=== PATIENT | male | born 1940 | race Caucasian/White ===

== ENCOUNTER → 2018-01-30 | Outpatient (CLI) | payer MEDICARE, OTHER | LOC: M.LAB 04:28 | DX: Z01.812 Encounter for preprocedural laboratory examination (principal) ==

== ENCOUNTER → 2019-03-16 | Outpatient (CLI) | payer MEDICARE, OTHER | LOC: M.MRI 15:53 | DX: R90.82 White matter disease, unspecified (principal); I66.9 Occlusion and stenosis of unspecified cerebral artery; H74.8X1 Other specified disorders of right middle ear and mastoid ==

== ENCOUNTER → 2019-04-20 | Outpatient (CLI) | payer MEDICARE, OTHER ==
--- NOTE | 2019-04-20 15:23 | 2DMMODE ---
[place] [address] 2 D/M-MODE ECHOCARDIOGRAM Name: TABITHA MIKE Room: [facility]#: [id number] Admission: 04/20/19 Attend Phys: Alejandro Middleton, Discharge: Date of : 40 Date of Service: 04/20/19 1522 Report #: [id number] THIS REPORT FOR: cc: Heather Mittal Maggie M. DO Liston, Michael J. MD [facility] ~ APPROVED REPORT Study performed: 04/20/2019 13:01:37 EXAM: Comprehensive 2D, Doppler, and color-flow Echocardiogram Patient Location: Out-Patient BSA: 1.98 HR: 57 bpm BP: 140/82 mmHg Other Information Study Quality: Good Indications Dyspnea 2D Dimensions IVSd: 13.99 (7-11mm) LVOT Diam: 20.65 (18-24mm) LVDd: 45.48 mm PWd: 10.50 (7-11mm) Ascending Ao: 32.23 (22-36mm) LVDs: 26.81 (25-40mm) Aortic Root: 33.88 mm Volumes Left Atrial Volume (Systole) LA ESV Index: 16.60 mL/m2 Aortic Valve AoV Peak Zana.: 1.11 m/s AO Peak Gr.: 4.95 mmHg LVOT Max P.64 mmHg AO Mean Gr.: 2.49 mmHg LVOT Mean P.85 mmHg LVOT Max V: 0.95 m/s AO V2 VTI: 21.14 cm LVOT Mean V: 0.63 m/s PAULA (VTI): 3.44 cm2 LVOT V1 VTI: 21.72 cm Mitral Valve E/A Ratio: 0.74 [place] [address] 2 D/M-MODE ECHOCARDIOGRAM Name: TABITHA MIKE Room: [facility]#: [id number] Admission: 04/20/19 Attend Phys: Alejandro Middleton, Discharge: Date of : 40 Date of Service: 04/20/19 1522 Report #: [id number] MV Decel. Time: 209.27 ms MV E Max Zana.: 0.48 m/s MV PHT: 60.69 ms MVA (PHT): 3.63 cm2 TDI E/Lateral E': 4.80 E/Medial E': 6.00 Medial E' Zana.: 0.08 m/s Lateral E' Zana.: 0.10 m/s Pulmonary Valve PV Peak Zana.: 0.77 m/s PV Peak Gr.: 2.35 mmHg Tricuspid Valve RAP Estimate: 5.00 mmHg TR Peak Gr.: 20.30 mmHg RVSP: 25.30 mmHg PA Pressure: 25.30 mmHg Left Ventricle The left ventricle is normal size. There is normal LV segmental wall motion. Sigmoid septum is present. Left ventricular systolic function is normal. LVEF is 60-65%. Grade I - abnormal relaxation pattern. Right Ventricle The right ventricle is normal size. The right ventricular systolic function is normal. Atria The left atrium size is normal. The right atrium size is normal. Aortic Valve The aortic valve is normal in structure. No aortic regurgitation is present. There is no aortic valvular stenosis. Mitral Valve The mitral valve is normal in structure. Mild mitral regurgitation. No evidence of mitral valve stenosis. Tricuspid Valve The tricuspid valve is normal in structure. Mild tricuspid regurgitation. No pulmonary hypertension. Pulmonic Valve The pulmonary valve is normal in structure[place] [address] 2 D/M-MODE ECHOCARDIOGRAM Name: CEETABITHA LEE Woodrow Room: [facility]#: [id number] Admission: 04/20/19 Attend Phys: Alejandro Middleton, Discharge: Date of : 40 Date of Service: 04/20/19 1522 Report #: [id number] regurgitation. Great Vessels The aortic root is normal in size. IVC is normal in size and collapses >50% with inspiration. Pericardium There is no pericardial effusion. <Conclusion> The left ventricle is normal size. Sigmoid septum is present. Left ventricular systolic function is normal. LVEF is 60-65%. Grade I - abnormal relaxation pattern. Mild mitral regurgitation. Mild tricuspid regurgitation. No pulmonary hypertension. IVC is normal in size and collapses >50% with inspiration. <ELECTRONICALLY SIGNED> By: Geoffrey Rae MD, FACC 04/20/19 1522 1522 152 Geoffrey Rae MD, FACC /INF
--- NOTE | 2019-04-21 17:16 | CARDNUC ---
[place] [address] CARDIAC NUCLEAR IMAGING REPORT Name: TABITHA MIKE Room: [facility]#: [id number] Admission: 04/20/19 Attend Phys: Alejandro Middleton, Discharge: Date of : 40 Date of Service: 04/21/19 1715 Report #: [id number] THIS REPORT FOR: cc: Heather Mittal Maggie M. DO Liston, Michael J. MD [facility] ~ APPROVED REPORT Study performed: 04/20/2019 15:38:45 Exam: Nuclear Stress Test Indication: PSVT, VT, ABN Holter, Orthostatic Hypotension, Dizziness. Patient Location: Out-Patient Stress Tech: Rosalba Padron Stress Nurse: Bobbi James R.N. Ht: 5 ft 10 in Wt: 181 lbs BSA: 2.00 m2 BMI: 25.96 Medical History Medical History: ABN Holter, Dizziness, HX VT/PSVT, HX CVA, Orthostatic Hypotension, HTN, HLD, Past smoker, present tobacco chewer, ruptured lumbar disk. Medications: Metoprolol, ASA 81 Mg, Klor-Con, Simvastatin. Allergies: Cefdinir Cardiac Risk Factors: Age, FHX of CAD, HTN, Hyperlipidemia, Past Smoker, Tobacco chewer. Previous Cardiac Procedures: None Pretest Chest Pain Characteristics: No chest pain Exercise History: Indeterminate Physical Disabilities: Ruptured lumbar disk, Lightheadedness. Meds Held (24 hrs): Metoprolol. Stress Test Details Stress Test: Pharmacologic stress testing performed using 0.4 mg of regadenoson per 5 mL given IV over 10 seconds. Reason for pharmacologic stress test: Ruptured lumbar disk, lightheadedness.. HR Resting HR: 56 bpm Max Heart Rate (APMHR): 142 bpm Max HR Achieved: 94 bpm Target HR (85% APMHR): 120 bpm % of APMHR: 66 Recovery HR: 73 [place] [address] CARDIAC NUCLEAR IMAGING REPORT Name: CEETABITHA Woodrow Room: [facility]#: [id number] Admission: 04/20/19 Attend Phys: Alejandro Middleton, Discharge: Date of : 40 Date of Service: 04/21/19 1715 Report #: [id number] Resting BP: 153/81 mmHg Max BP: 126/82 mmHg ECG Resting ECG: Sinus Rhythm Stress ECG: Sinus Rhythm ST Change: None Arrhythmia: None Recovery ECG: Sinus Rhythm Recovery ST Change: None Recovery Arrhythmia: None Clinical Reason for Termination: Completed protocol Stress Symptoms: Dyspnea Exercise duration: 00 min 00 sec Exercise capacity: 1.00 METs The patient tolerated Lexiscan infusion without significant cardiac symptoms. Nurse Comments A 78 year old male presented for a sitting Lexiscan r/t ABN Holter, dizziness/lightheadedness, HX SV/PSVT and orthostatic hypotension. Test tolerated. Recovery unremarkable with PO caffeine, effective. Patient was escorted via wheelchair by staff to Nuclear Medicine for imaging. Patient was stable and stated he felt good at that time. Stress ECG Conclusion Baseline 12-lead EKG shows sinus rhythm without significant ST segment or T wave abnormality. EKGs obtained during and post Lexiscan infusion show sinus rhythm with no significant ST segment or T-wave changes when compared to baseline. There were no stress-induced arrhythmias. NM EXAM: Myocardial Perfusion REST/STRESS Imaging Protocol: Rest Tc-99m/Stress Tc-99m 1 day Resting Data Rest SPECT myocardial perfusion imaging was performed in supine position 30 minutes following the intravenous injection of 10.1 mCi of Tc-99m Sestamibi. Time of rest injection: 1410 Administration Route: [place] [address] CARDIAC NUCLEAR IMAGING REPORT Name: CEETABITHA Woodrow Room: [facility]#: [id number] Admission: 04/20/19 Attend Phys: Alejandro Middleton, Discharge: Date of : 40 Date of Service: 04/21/19 1715 Report #: [id number] Administration Site: Right AC Pharmacologic Stress Pharmacologic stress test was performed by injecting Regadenoson 0.4 mg IV push followed by the intravenous injection of 32.2 mCi of Tc-99m Sestamibi. Time of stress injection: 1550 Administration Route: IV Administration Site: Right AC Gated Stress SPECT was performed 40 minutes after stress injection. The images were gated to evaluate regional wall motion and calculate left ventricular ejection fraction. Prone imaging was performed. Study Quality Study: Good Artifact: Mild Diaphragmatic artifact Study Data At rest, the left ventricular ejection fraction was 66%.. Post stress, the left ventricular ejection was 73%.. TID = 0.95. Perfusion Perfusion images obtained in the supine position at rest and post Lexiscan stress show photopenia involving the basal to distal inferior wall that resolves completely with post stress prone imaging suggesting diaphragmatic attenuation artifact. Wall motion in this region is normal. No other significant fixed or reversible defects were identified. Wall Motion Normal left ventricular wall motion. Nuclear Conclusion ECG Findings: negative for ischemia Clinical Findings: negative for ischemia Nuclear Findings: negative for ischemia Exercise Capacity: not assessed Left Ventricular Function: normal Risk Study: low Perfusion images show no defect to suggest ischemia. Global LV systolic function is normal. This is a low risk study. <Conclusion> [place] [address] CARDIAC NUCLEAR IMAGING REPORT Name: TABITHA MIKE Room: [facility]#: [id number] Admission: 04/20/19 Attend Phys: Alejandro Middleton, Discharge: Date of : 40 Date of Service: 04/21/19 1715 Report #: [id number] Baseline 12-lead EKG shows sinus rhythm without significant ST segment or T wave abnormality. EKGs obtained during and post Lexiscan infusion show sinus rhythm with no significant ST segment or T-wave changes when compared to baseline. There were no stress-induced arrhythmias. <ELECTRONICALLY SIGNED> By: Geoffrey Rae MD, FACC 04/21/195 14 14 Geoffrey Rae MD, FACC /INF
== END ==
LOC: M.CRD 04-07 09:45 → M.NUC 14:00
DX: I08.8 Other rheumatic multiple valve diseases (principal); I47.1 Supraventricular tachycardia; I95.1 Orthostatic hypotension; I10 Essential (primary) hypertension; E78.5 Hyperlipidemia, unspecified; Z79.899 Other long term (current) drug therapy